=== PATIENT | male | born 1960 | race Caucasian/White ===

== ENCOUNTER → 2018-01-17 08:08 | Outpatient (CLI) | payer OTHER, SELFPAY ==
[2018-01-17 09:24] LABS: BUN Creatinine Ratio 13.6 (6-22); Blood Urea Nitrogen 15 mg/dL (9-20); Calcium 9.3 mg/dL (8.4-10.2); Carbon Dioxide 29 mmol/L (22-32); Chloride 106 mmol/L (98-107); Cholesterol 195 mg/dL (140-199); Estimated Glomerular Filt Rate > 60.0 mL/min (>60); Glucose 92 mg/dL (70-100); HDL Cholesterol 33 mg/dL (40-60); HEMOLYSIS 17 (0-50); LDL Cholesterol Calculated 127 mg/dL (<100); Potassium 4.4 mmol/L (3.4-5.1); Sodium 144 mmol/L (137-145); Triglycerides 174 mg/dL (35-150)
[2018-01-17 09:42] LABS: Vitamin D 25 Hydroxy (D3) 40.3 ng/mL (30.0-100.0)
== END ==
PROVIDERS: Family Provider Family Medicine; PCP Student in an Organized Health Care Education/Training Program; Visit Provider Student in an Organized Health Care Education/Training Program
DX: I10 Essential (primary) hypertension (principal); Z12.5 Encounter for screening for malignant neoplasm of prostate; E55.9 Vitamin D deficiency, unspecified; Z13.220 Encounter for screening for lipoid disorders
CPT/HCPCS: 36415; 80048; 80061; 82306; 84153

== ENCOUNTER → 2018-07-14 09:14 | Outpatient (CLI) | payer OTHER, SELFPAY ==
--- NOTE | 2018-07-14 09:15 | DI.RAD.S_ITS ---
PROCEDURE: XR CHEST 2V INDICATIONS: cough TECHNIQUE: 2 views of the chest were acquired. COMPARISON: None. FINDINGS: Surgical changes and devices: None. Lungs and pleura: Lungs are clear. No pleural effusions or pneumothorax. Mediastinum: Mediastinal contours are normal. Heart size is normal. Bones and chest wall: No suspicious bony abnormalities. Soft tissues appear unremarkable. IMPRESSION: No acute process. Dictated by: Jose L Morfin M.D. on 07/14/2018 at 9:26 Approved by: Jose L Morfin M.D. on 07/14/2018 at 9:27
== END ==
PROVIDERS: PCP Student in an Organized Health Care Education/Training Program; Visit Provider Physician Assistant
DX: R05 Cough (principal)
CPT/HCPCS: 71046

== ENCOUNTER → 2019-05-26 16:38 | Outpatient (CLI) | payer OTHER, SELFPAY ==
--- NOTE | 2019-05-26 16:41 | DI.MRI.S_ITS ---
PROCEDURE: MR KNEE LT WO CON INDICATIONS: Medial Left knee pain TECHNIQUE: Noncontrast sagittal PD fast spin echo and T2 fast spin echo with fat saturation, sagittal 3-D FLASH with fat saturation; coronal T1 spin echo and PD fast spin echo with fat saturation, and axial PD fast spin echo with fat saturation through the knee. COMPARISON: [facility], CR, XR KNEE ARTHRITIC SERIES BI, 04/28/2019, 8:29. FINDINGS: Image quality: Excellent. Menisci: Medial meniscus intact. Mild fraying of the free margin of the anterior horn of the lateral meniscus. Cruciate ligaments: Mild intrasubstance signal change involving the ACL although no complete rupture. This is primarily involving the proximal segment for example image 18/8 Posterior cruciate ligament appears intact. Medial structures: The medial collateral ligament appears grossly intact although there is marked soft tissue edema adjacent to it. Semimembranosus tendon appears intact. Visualized portions of the pes anserinus tendons appear normal. No abnormal bursal fluid. Lateral structures: The lateral collateral ligament intact. Biceps femoris tendon appears intact. Popliteus tendon grossly unremarkable. Iliotibial band appears intact. Anterior structures: Quadriceps tendon intact. Both medial and lateral patellofemoral ligament not well-seen at the patellar attachment site raising possibility of low-grade sprain (although age unknown). There is diffuse patellar tendinopathy. Prepatellar and superficial infrapatellar subcutaneous edema/fluid. Calcifications seen on comparison radiographs at the medial aspect of the anterior knee appear to be extra-articular, probably dystrophic calcifications and/or heterotopic ossification. Bones and cartilage: No focal marrow contusion or discrete low signal fracture line. Within the medial compartment, diffuse intrasubstance signal change involving the femoral cartilage without focal defect. Tibial cartilage appears grossly intact although there is some internal signal change. Within the lateral compartment, diffuse internal signal changes involving the femoral and tibial articular cartilage. No full thickness fissuring of the central weightbearing tibial cartilage Within the patellofemoral compartment, full thickness loss of the cartilage overlying the lateral patellar facet and lateral femoral trochlea. There is underlying subchondral cystic change and marrow edema. Internal signal changes present in the remaining patellar and femoral trochlear cartilage Joint space: Large joint effusion. Large multiloculated Mustafa's cyst. This measures approximately 7 cm in the cephalocaudad dimension, and may be partially ruptured No specific evidence of intra-articular loose body. IMPRESSION: Ill-defined fraying/tear the free margin of the anterior horn of lateral meniscus. Severe joint degeneration primarily within the patellofemoral compartment where there is full-thickness articular cartilage loss. Large joint effusion Large multiloculated partially ruptured Mustafa's cyst Edema adjacent to the MCL suggests low-grade sprain. Age-indeterminate low-grade partial rupture versus early mucoid degeneration involving the proximal segment of the ACL. Dictated by: Varun Zuleta M.D. on 05/27/2019 at 8:44 Approved by: Varun Zuleta M.D. on 05/27/2019 at 8:56
== END ==
PROVIDERS: PCP Student in an Organized Health Care Education/Training Program; Referring Provider Physician Assistant Surgical; Visit Provider Physician Assistant Surgical
DX: M25.562 Pain in left knee (principal); S83.282A Other tear of lateral meniscus, current injury, left knee, initial encounter; M17.12 Unilateral primary osteoarthritis, left knee; M66.0 Rupture of popliteal cyst; M25.462 Effusion, left knee
CPT/HCPCS: 73721

== ENCOUNTER → 2020-06-07 16:57 | Outpatient (CLI) | payer OTHER, SELFPAY ==
[2020-06-07] MEDS: COVID-19 VACC, Ad26(JANSSEN)/PF 0.5 ML IM (17:04)
== END ==
PROVIDERS: Visit Provider Internal Medicine
DX: Z23 Encounter for immunization (principal)
CPT/HCPCS: 0031A; 91303

== ENCOUNTER → 2020-12-29 12:37 | Outpatient (CLI) | payer OTHER, SELFPAY ==
[2020-12-29 13:47] LABS: COVID19 -Nasal RAPID Negative (Negative)
== END ==
PROVIDERS: Visit Provider Physician Assistant
DX: Z20.822 Contact with and (suspected) exposure to COVID-19 (principal); R05.9 Cough, unspecified; R51.9 Headache, unspecified
CPT/HCPCS: 87635

== ENCOUNTER → 2021-12-18 07:07 | Outpatient (CLI) | payer OTHER, SELFPAY ==
[2021-12-18 08:22] LABS: Hematocrit 44.8 % (41-53); Hemoglobin 15.6 g/dL (13.5-17.5); Mean Corpuscular HGB Conc 34.8 % (30-36); Mean Corpuscular Hemoglobin 31.6 PG (26-34); Mean Corpuscular Volume 90.9 fL (80-100); Platelet Count 164 X10^3/uL (150-400); Red Blood Cell Count 4.93 X10^6/uL (4.5-5.9); Red Cell Distribution Width 13.8 % (11.6-14.8); White Blood Cell Count 7.1 X10^3/uL (4.5-11.0)
[2021-12-18 08:35] LABS: Alanine Aminotransferase 28 IU/L (<50); Albumin 4.2 g/dL (3.5-5.0); Albumin Globulin Ratio 1.3 (1.0-2.8); Alkaline Phosphatase 70 U/L (38-126); Aspartate Aminotransferase 26 IU/L (17-59); BUN Creatinine Ratio 13.4 (6-22); Bilirubin Total 0.7 mg/dL (0.2-1.3); Blood Urea Nitrogen 15 mg/dL (9-20); Calcium 8.8 mg/dL (8.4-10.2); Carbon Dioxide 26 mmol/L (22-32); Chloride 107 mmol/L (98-107); Cholesterol 212 mg/dL (140-199); Estimated Glomerular Filt Rate > 60 mL/min (>60); Globulin 3.2 g/dL (1.7-4.1); Glucose 102 mg/dL (80-110); HDL Cholesterol 38 mg/dL (40-60); HEMOLYSIS < 15 (0-50); LDL Cholesterol Calculated 143 mg/dL (<100); Potassium 3.9 mmol/L (3.4-5.1); Sodium 141 mmol/L (137-145); Total Protein 7.4 g/dL (6.3-8.2); Triglycerides 154 mg/dL (35-150)
[2021-12-18 09:04] LABS: Prostate Specific Antigen 1.09 ng/mL (0.10-4.00)
[2021-12-18 09:05] LABS: TSH w/ Reflex to FT4 2.01 uIU/mL (0.47-4.68)
== END ==
PROVIDERS: PCP Internal Medicine; Referring Provider Internal Medicine; Visit Provider Internal Medicine
DX: R03.0 Elevated blood-pressure reading, without diagnosis of hypertension (principal); E78.2 Mixed hyperlipidemia; Z00.00 Encounter for general adult medical examination without abnormal findings
CPT/HCPCS: 36415; 80053; 80061; 84153; 84443; 85027

== ENCOUNTER → 2022-12-23 08:36 | Outpatient (CLI) | payer OTHER, SELFPAY ==
[2022-12-23 10:46] LABS: BUN Creatinine Ratio 13.8 (6-22); Blood Urea Nitrogen 18 mg/dL (9-20); Calcium 9.3 mg/dL (8.4-10.2); Carbon Dioxide 26 mmol/L (22-32); Chloride 106 mmol/L (98-107); Cholesterol 207 mg/dL (140-199); Estimated Glomerular Filt Rate > 60 mL/min (>60); Glucose 85 mg/dL (80-110); HDL Cholesterol 35 mg/dL (40-60); HEMOLYSIS < 15 (0-50); LDL Cholesterol Calculated 146 mg/dL (<100); Potassium 4.3 mmol/L (3.4-5.1); Sodium 139 mmol/L (137-145); Triglycerides 131 mg/dL (35-150)
[2022-12-23 11:08] LABS: Prostate Specific Antigen Scrn 1.16 ng/mL (0.1-4.0)
[2022-12-24 14:08] LABS: Fecal Immunochemical Test Negative (Negative)
== END ==
PROVIDERS: PCP Internal Medicine; Referring Provider Internal Medicine; Visit Provider Internal Medicine
DX: Z00.00 Encounter for general adult medical examination without abnormal findings (principal); E78.2 Mixed hyperlipidemia; R03.0 Elevated blood-pressure reading, without diagnosis of hypertension; Z12.5 Encounter for screening for malignant neoplasm of prostate; Z12.11 Encounter for screening for malignant neoplasm of colon
CPT/HCPCS: 36415; 80048; 80061; 82274; G0103

== ENCOUNTER → 2023-12-30 14:05 | Outpatient (CLI) | payer OTHER, SELFPAY ==
[2023-12-30 16:06] LABS: Aspartate Aminotransferase 28 IU/L (17-59); Blood Urea Nitrogen 21 mg/dL (9-20); Calcium 9.4 mg/dL (8.4-10.2); Carbon Dioxide 27 mmol/L (22-32); Chloride 105 mmol/L (98-107); Cholesterol 224 mg/dL (140-199); Estimated Glomerular Filt Rate 52 mL/min (>60); Glucose 86 mg/dL (80-110); HDL Cholesterol 41 mg/dL (40-60); HEMOLYSIS < 15 (0-50); LDL Cholesterol Calculated 150 mg/dL (<100); Potassium 4.9 mmol/L (3.4-5.1); Sodium 139 mmol/L (137-145); Triglycerides 167 mg/dL (35-150)
[2023-12-30 16:36] LABS: Prostate Specific Antigen 1.87 ng/mL (0.10-4.00)
== END ==
LOC: LAB 14:06
PROVIDERS: PCP Internal Medicine; Referring Provider Internal Medicine; Visit Provider Internal Medicine
DX: E78.2 Mixed hyperlipidemia (principal); R03.0 Elevated blood-pressure reading, without diagnosis of hypertension
CPT/HCPCS: 36415; 80048; 80061; 84153; 84450

== ENCOUNTER → 2023-12-31 08:36 | Outpatient (CLI) | payer OTHER, SELFPAY | PROVIDERS: PCP Internal Medicine; Referring Provider Internal Medicine; Visit Provider Internal Medicine | DX: Z12.11 Encounter for screening for malignant neoplasm of colon (principal) | CPT/HCPCS: 82274 ==

== ENCOUNTER → 2024-01-06 08:07 | Outpatient (CLI) | payer OTHER, SELFPAY ==
--- NOTE | 2024-01-06 08:08 | DI.US.S_ITS ---
PROCEDURE: US RENAL COMPLETE INDICATIONS: elevated BUN/Creatinine TECHNIQUE: Real-time scanning was performed of the kidneys and bladder, with image documentation. COMPARISON: None. FINDINGS: Kidneys: Kidneys are normal in size. Right kidney measures 9.4 cm long; left kidney measures 10.8 cm long. Right renal cortical thickness is 1.0 cm; left renal cortical thickness is 1.9 cm. Renal cortical echotexture is normal. No hydronephrosis or nephrolithiasis. No suspicious solid mass lesions. Bladder: Pre-void bladder volume is 237 mL. Post-void residual is 5.1 mL. Pre-void images demonstrate no intraluminal masses or stones. On pre-void images, bilateral ureteral jets are noted with color Doppler interrogation. (Of note, ureteral jets may not be detectable in up to 25% of cases due to insufficient differences in specific gravity between ureteral and bladder urine). Miscellaneous: No free pelvic fluid. IMPRESSION: No definite nephrolithiasis or hydronephrosis. Prevoid residual volume of 237 cc and postvoid residual volume of 5.3 cc. Bilateral ureteral jets visualized. Approved by: Angie Rowley M.D.,Ph.D. on 01/07/2024 at 1:28
== END ==
PROVIDERS: PCP Internal Medicine; Referring Provider Internal Medicine; Visit Provider Internal Medicine
DX: R79.89 Other specified abnormal findings of blood chemistry (principal); E86.0 Dehydration
CPT/HCPCS: 76770

== ENCOUNTER 2024-01-08 00:25 | Emergency (ER) | payer OTHER, SELFPAY ==
--- NOTE | 2024-01-08 00:28 | DI.RAD.S_ITS ---
PROCEDURE: XR CHEST 1V INDICATIONS: chest pain TECHNIQUE: One view of the chest was acquired. COMPARISON: None. FINDINGS: Surgical changes and devices: None. Lungs and pleura: Lungs are clear. No pleural effusions or pneumothorax. Mediastinum: Mediastinal contours appear normal. Heart size is normal. Bones and chest wall: No suspicious bony lesions. Overlying soft tissues appear unremarkable. IMPRESSION: No acute cardiopulmonary abnormality is seen. Dictated by: Gustavo Rosa M.D. on 01/08/2024 at 0:45 Approved by: Gustavo Rosa M.D. on 01/08/2024 at 0:46
[2024-01-08 00:30] VITALS: BP 176/84; PULSE 66; RESP 18; TEMP 36.9; O2SAT 97; BMI 28.5
--- NOTE | 2024-01-08 00:34 | EKG_ITS ---
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
--- NOTE | 2024-01-08 00:35 | ED.CHESTPAIN ---
HPI - Chest Pain General Chief Complaint: Chest Pain Stated Complaint: CHEST PAIN Time Seen by Provider: 01/08/24 00:32 Source: patient Mode of arrival: Ambulatory Limitations: no limitations History of Present Illness HPI narrative: 63-year-old history of dyslipidemia, presents with complaint of left-sided chest discomfort describes it as sort of left sided radiates a little bit up to her shoulder and lower neck. States it is little bit worse when he takes a big breath or burps, also notes that is worse particularly when he rolls over onto his side we will flare up his pain quite a bit for about 20-30 seconds and then improve. Certain movements of the chest or shoulder also seemed to increase it. Patient states no fevers, no cold cough or congestion. No diaphoresis. No shortness of breath other than some pain when he takes a breath. No nausea or vomiting, no abdominal back or flank pain, no swelling of extremities. Did note some loose stools yesterday. Has not had similar symptoms in the past. Does note that this started when he was on the couch for a long time and sort of an awkward position. He has not taken anything at home for pain. States he is supposed to be on a statin but has not started it yet. Denies any other medical issues. No prior surgeries. Had allergy to Vicodin makes him nauseated. Denies any tobacco, has 1 glass of wine nightly, no recreational drugs. No long distance travel or sitting for prolonged periods of time. Past medical history for embolic, vascular cardiac disease patient states mom had TIAs, dad had TIAs in [place] but states both parents were elderly. Dr. Roberts is his primary care physician. Related Data Previous Rx's Medication Instructions Recorded rosuvastatin 10 mg tablet 10 mg PO DAILY #90 tabs 12/30/23 Allergies Allergy/AdvReac Type Severity Reaction Status Date / Time hydrocodone [HYDROCODONE] AdvReac Mild Nausea Verified 12/30/23 13:23 Review of Systems Review of Systems ROS Unobtainable: All systems reviewed & are unremarkable except as noted in HPI and below Patient History Medical History Primary osteoarthritis involving multiple joints Allergic rhinitis Overweight Mixed hyperlipidemia Elevated blood pressure reading without diagnosis of hypertension Seborrheic keratoses Astigmatism Cataracts, bilateral Wears glasses Mumps (~1966) Knee pain Tinea corporis (2016) Hyperlipemia Hypertension Surgical History Anesthesia Hx of hernia repair (2001) Hx of knee surgery Family History Mother Heart disease Hypertension Mental health problem Stroke Father History of kidney cancer Bone cancer Heart disease Hyperlipidemia Hypertension Grandfather Cancer Grandmother Kidney disease Grandfather Heart disease Social History details: , 2 grown sons, 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 HEENT: Head normocephalic, atraumatic, EOMI, pupils reactive, face symmetric, moist mucous membranes NECK: Supple, full range of motion, normal range of motion. CARDIOVASCULAR: Regular rate and rhythm without murmurs, rubs or gallops. No JVD. No edema bilateral lower extremities. No reproducible chest pain on palpation. No rash or skin changes. RESPIRATORY: Breath sounds equal bilaterally, no wheezes rales or rhonchi. ABDOMEN: Soft, nontender. Normoactive bowel sounds all 4 quadrants. No guarding or rebound, rigidity, no mass : No CVA tenderness EXTREMITIES: Normal range of motion, no clubbing or edema. Neurovascularly intact NEUROLOGICAL: Cranial nerves II through XII grossly intact. Moving all extremities SKIN: Warm, dry, no petechiae, no rashes or lesions. Initial Vital Signs Initial Vital Signs: Vital Signs Temperature 98.5 F 01/08/24 00:30 Pulse Rate 66 01/08/24 00:30 Respiratory Rate 18 01/08/24 00:30 Blood Pressure 176/84 H 01/08/24 00:30 Pulse Oximetry 97 01/08/24 00:30 Oxygen Delivery Method Room Air 01/08/24 00:30 Scores HEART Score Heart Score history: Moderately Suspicious Heart Score EKG: Normal Heart Score Age: 45-64 years old Heart Score risk factors: 1-2 risk factors Heart Score troponin: < or = to normal limit Heart Score Total: 3 Course Orders Ordered: ED Orders 01/08/24 00:28 XR chest 1V Stat EKG-12 Lead Stat 01/08/24 00:35 Complete Blood Count AUTO DIFF Stat Comprehensive Metabolic Panel Stat Lipase Stat Magnesium Stat NT-proBNP (BNP-Adult 18+) Stat PTT Partial Thromboplastin Grady Stat Prothrombin Time INR Stat Troponin & CK Cardiac Panel Stat Discontinued Medications Aspirin (Aspirin 81 Mg Chew Tab) 324 mg PO NOW ONE Stop: 01/08/24 00:29 Last Admin: 01/08/24 00:36 Dose: 324 mg Documented By: JASON Vital Signs Vital signs: Vital Signs - 8 hr 01/08/24 00:30 01/08/24 00:40 01/08/24 00:45 Temperature 98.5 F Pulse Rate 66 64 61 Respiratory Rate 18 12 12 Blood Pressure 176/84 H Pulse Oximetry 97 96 96 Oxygen Delivery Method Room Air 01/08/24 00:45 01/08/24 01:00 01/08/24 01:00 Temperature Pulse Rate 64 Respiratory Rate 26 H Blood Pressure 156/86 H 147/79 H Pulse Oximetry 96 Oxygen Delivery Method Room Air 01/08/24 01:15 01/08/24 01:15 01/08/24 01:30 Temperature Pulse Rate 62 Respiratory Rate 14 Blood Pressure 146/84 H 134/80 Pulse Oximetry 95 Oxygen Delivery Method 01/08/24 01:30 Temperature Pulse Rate 59 L Respiratory Rate 12 Blood Pressure Pulse Oximetry 96 Oxygen Delivery Method MDM - Chest Pain Lab Data 01/08/24 00:35 01/08/24 00:35 Labs: Lab Results 01/08/24 Range/Units 00:35 WBC 9.2 (4.5-11.0) X10^3/uL RBC 4.80 (4.5-5.9) X10^6/uL Hgb 14.9 (13.5-17.5) g/dL Hct 44.2 (41-53) % MCV 92.1 (80-100) fL MCH 31.0 (26-34) PG MCHC 33.6 (30-36) % RDW 13.7 (11.6-14.8) % Plt Count 160 (150-400) X10^3/uL Neut % (Auto) 55.2 (50-75) % Lymph % (Auto) 33.0 (25-40) % [place] % (Auto) 8.1 (3-14) % Eos % (Auto) 2.7 (2-4) % Baso % (Auto) 1.0 (0-2) % Neut # (Auto) 5100 (3155-6525) /uL Lymph # (Auto) 3000 (1037-4827) /uL [place] # (Auto) 700 (0-900) /uL Eos # (Auto) 300 (0-450) /uL Baso # (Auto) 100 (0-100) /uL PT 11.1 (9.4-12.5) SECONDS INR 1.0 (0.9-1.3) APTT 34 (25.1-36.5) SECONDS Sodium 139 (137-145) mmol/L Potassium 3.8 (3.4-5.1) mmol/L Chloride 108 H (98-107) mmol/L Carbon Dioxide 22 (22-32) mmol/L BUN 24 H (9-20) mg/dL Creatinine 1.29 H (0.66-1.25) mg/dL Estimated GFR > 60 (>60) mL/min BUN/Creatinine Ratio 18.6 (6-22) Glucose 96 (80-110) mg/dL Calcium 8.9 (8.4-10.2) mg/dL Magnesium 1.9 (1.6-2.3) mg/dL Total Bilirubin 0.5 (0.2-1.3) mg/dL AST 24 (17-59) IU/L ALT 18 (<50) IU/L Alkaline Phosphatase 74 (38-126) U/L Total Creatine Kinase 233 H (55-170) U/L Troponin I < 0.012 (0.01-0.034) ng/mL NT-Pro-B Natriuret Pep 26 (<125) pg/mL Total Protein 6.9 (6.3-8.2) g/dL Albumin 4.1 (3.5-5.0) g/dL Globulin 2.8 (1.7-4.1) g/dL Albumin/Globulin Ratio 1.5 (1.0-2.8) Lipase 175 (23-300) U/L Imaging Data Chest x-ray: Radiologist's Impression: Horacio Mahmood I??63??M??1960 ? Allergy/Adv: hydrocodone Close Chest X-Ray (Signed) Gustavo Rosa - 01/08/24 Renal Ultrasound (Signed) AmrikAngie - 01/06/24 Knee MRI (Signed) Varun Zuleta - 05/26/19 Chest X-Ray (Signed) Jose L Morfin - 07/14/18 Launch?[address] [address] XRay Report Signed Patient: Horacio Mahmood I MR#: [id number] : 1960 Acct:[id number] Age/Sex: 63 / M Date of Service: 01/08/24 Loc: ED Accession Number: [id number] Procedure: XR chest 1V Ordering Provider: Jessi Mojica D.O. PROCEDURE: XR CHEST 1V INDICATIONS: chest pain TECHNIQUE: One view of the chest was acquired. COMPARISON: None. FINDINGS: Surgical changes and devices: None. Lungs and pleura: Lungs are clear. No pleural effusions or pneumothorax. Mediastinum: Mediastinal contours appear normal. Heart size is normal. Bones and chest wall: No suspicious bony lesions. Overlying soft tissues appear unremarkable. IMPRESSION: No acute cardiopulmonary abnormality is seen. Dictated by: Gustavo Rosa M.D. on 01/08/2024 at 0:45 Approved by: Gustavo Rosa M.D. on 01/08/2024 at 0:46 ECG Data Attestation: I personally reviewed and interpreted this ECG as follows: Prior ECG tracings: not available for review Interpretation: Sinus rhythm rate of 64 CT 176 QRS of 108 QTC of 420. No acute ST elevation depression noted. MDM Narrative Medical decision making narrative: 63-year-old male history of dyslipidemia with left-sided chest pain to the left shoulder neck for the past 24 hours with increased discomfort with particular movements, deep breath. Labs show white count of 9.2 hemoglobin of 14.9 platelets of 160. Coags are negative, sodium is 139 potassium 3.8 chloride 108 CO2 is 22 with a BUN 24 creatinine 1.29 improved from December 30, 2023 LFTs are negative CK is 233. Troponins less than 0.012. Lipase is 175. Chest x-ray does not show any acute change EKG shows sinus rhythm no acute ST elevation or depression. No priors for comparison. Discussed with patient troponin and EKG are reassuring, discussed repeating troponin but patient defers. He has had 24+ hours without any resolution of his pain spikes a unlikely to be having an acute coronary event. Did discuss obtaining a D-dimer and or CT angio of the chest to evaluate for blood clots, aneurysm or dissection. Patient does note pain particularly with certain movements although I am not able to reproduce with physical exam. Patient defers further workup and would like to return home. States he will try some Tylenol and ibuprofen. Discussed return precautions and then he is welcome to return at any time. Discharge Plan Departure Patient Disposition: Home Clinical Impression: Left-sided chest pain Instructions: DI for Chest Pain Activity Restrictions/Additional Instructions: Follow up for recheck if you are not having any improvement. Please return for new or worsening chest, lightheadedness or passing out, shortness of breath, new swelling of your extremities, diaphoresis or sweatiness, nausea or vomiting or other new or concerning changes. Prescriptions: No Action rosuvastatin 10 mg tablet 10 mg PO DAILY Qty: 90 3RF Referrals: Esdras Roberts MD [Primary Care Provider] - Stand Alone Forms: Patient Portal/API
[2024-01-08] MEDS: ASPIRIN 81 MG CHEW TAB 324 MG PO (00:36)
[2024-01-08 00:40] VITALS: PULSE 64; RESP 12; O2SAT 96
[2024-01-08 00:45] VITALS: BP 156/86; PULSE 61; RESP 12; O2SAT 96
[2024-01-08 00:46] LABS: Add Manual Diff / Slide Review NO; Basophils Absolute Auto 100 /uL (0-100); Eosinophils Absolute Auto 300 /uL (0-450); Eosinophils Percent Auto 2.7 % (2-4); Hematocrit 44.2 % (41-53); Hemoglobin 14.9 g/dL (13.5-17.5); Lymphocytes Absolute Auto 3000 /uL (1100-4500); Mean Corpuscular HGB Conc 33.6 % (30-36); Mean Corpuscular Volume 92.1 fL (80-100); Monocytes Absolute Auto 700 /uL (0-900); Monocytes Percent Auto 8.1 % (3-14); Neutrophils Absolute Auto 5100 /uL (1500-7000); Neutrophils Percent Auto 55.2 % (50-75); Platelet Count 160 X10^3/uL (150-400); Red Cell Distribution Width 13.7 % (11.6-14.8); White Blood Cell Count 9.2 X10^3/uL (4.5-11.0)
[2024-01-08 01:00] VITALS: BP 147/79; PULSE 64; RESP 26; O2SAT 96
[2024-01-08 01:08] LABS: Prothrombin Time 11.1 SECONDS (9.4-12.5)
[2024-01-08 01:10] LABS: PTT Partial Thromboplastin Tim 34 SECONDS (25.1-36.5)
[2024-01-08 01:12] LABS: Alanine Aminotransferase 18 IU/L (<50); Albumin 4.1 g/dL (3.5-5.0); Albumin Globulin Ratio 1.5 (1.0-2.8); Alkaline Phosphatase 74 U/L (38-126); Aspartate Aminotransferase 24 IU/L (17-59); BUN Creatinine Ratio 18.6 (6-22); Bilirubin Total 0.5 mg/dL (0.2-1.3); Blood Urea Nitrogen 24 mg/dL (9-20); Calcium 8.9 mg/dL (8.4-10.2); Carbon Dioxide 22 mmol/L (22-32); Chloride 108 mmol/L (98-107); Creatine Kinase 233 U/L (55-170); Estimated Glomerular Filt Rate > 60 mL/min (>60); Globulin 2.8 g/dL (1.7-4.1); Glucose 96 mg/dL (80-110); HEMOLYSIS < 15 (0-50); Lipase 175 U/L (23-300); Magnesium 1.9 mg/dL (1.6-2.3); Potassium 3.8 mmol/L (3.4-5.1); Sodium 139 mmol/L (137-145); Total Protein 6.9 g/dL (6.3-8.2)
[2024-01-08 01:15] VITALS: BP 146/84; PULSE 62; RESP 14; O2SAT 95
[2024-01-08 01:24] LABS: NT-proBNP (BNP-Adult 18+) 26 pg/mL (<125); Troponin I < 0.012 ng/mL (0.01-0.034)
[2024-01-08 01:30] VITALS: BP 134/80; PULSE 59; RESP 12; O2SAT 96
== END 2024-01-08 01:52 | disposition home or self-care (01) ==
PROVIDERS: Emergency Provider Emergency Medicine; PCP Internal Medicine
DX: R07.9 Chest pain, unspecified (principal); M54.2 Cervicalgia
CPT/HCPCS: 36415; 71045; 80053; 82550; 83690; 83735; 83880; 84484; 85025; 85610; 85730; 93005; 93010; 99284

== ENCOUNTER → 2024-08-14 07:21 | Outpatient (CLI) | payer OTHER, SELFPAY ==
[2024-08-14 08:07] LABS: Influenza A - CEPHEID Flu A NEGATIVE (NEGATIVE); Influenza B - CEPHEID Flu B NEGATIVE (NEGATIVE); Respiratory Syncytial Virus Negative (Negative)
[2024-08-14 09:32] LABS: COVID-19 CEPHEID 4-PLEX PCR Negative (Negative)
== END ==
LOC: LAB 07:22
PROVIDERS: PCP Internal Medicine; Visit Provider Nurse Practitioner Family
DX: R05.1 Acute cough (principal)
CPT/HCPCS: 0241U

== ENCOUNTER → 2024-08-14 07:38 | Outpatient (CLI) | payer OTHER, SELFPAY ==
--- NOTE | 2024-08-14 07:41 | DI.RAD.S_ITS ---
PROCEDURE: XR CHEST 2V INDICATIONS: cough TECHNIQUE: 2 views of the chest were acquired. COMPARISON: [facility], CR, XR CHEST 1V, 01/08/2024, 0:26. FINDINGS: Surgical changes and devices: None. Lungs and pleura: Lungs are clear. No pleural effusions or pneumothorax. Mediastinum: Mediastinal contours are normal. Heart size is normal. Bones and chest wall: No suspicious bony abnormalities. Soft tissues appear unremarkable. IMPRESSION: No acute cardiothoracic process. Dictated by: Rian Quick M.D. on 08/15/2024 at 17:15 Approved by: Rian Quick M.D. on 08/15/2024 at 17:15
== END ==
PROVIDERS: PCP Internal Medicine; Referring Provider Nurse Practitioner Family; Visit Provider Nurse Practitioner Family
DX: R05.9 Cough, unspecified (principal); R05.1 Acute cough
CPT/HCPCS: 0241U; 71046

== ENCOUNTER → 2025-01-04 09:28 | Outpatient (CLI) | payer OTHER, SELFPAY ==
[2025-01-04 10:31] LABS: Blood Urea Nitrogen 20 mg/dL (9-20); Calcium 9.0 mg/dL (8.4-10.2); Carbon Dioxide 25 mmol/L (22-32); Chloride 105 mmol/L (98-107); Cholesterol 171 mg/dL (140-199); Estimated Glomerular Filt Rate > 60 mL/min (>60); Glucose 76 mg/dL (70-99); HDL Cholesterol 40 mg/dL (40-60); HEMOLYSIS < 15 (0-50); Potassium 4.1 mmol/L (3.4-5.1); Sodium 138 mmol/L (137-145); Triglycerides 111 mg/dL (35-150)
== END ==
PROVIDERS: PCP Internal Medicine; Referring Provider Internal Medicine; Visit Provider Internal Medicine
DX: R03.0 Elevated blood-pressure reading, without diagnosis of hypertension (principal); E78.2 Mixed hyperlipidemia; Z12.5 Encounter for screening for malignant neoplasm of prostate
CPT/HCPCS: 36415; 80048; 80061; 84450; G0103